=== PATIENT | female | born 1975 ===

== ENCOUNTER 2017-11-16 15:02 | Emergency (ER) | payer MEDICAID, OTHER ==
[2017-11-16 15:31] VITALS: BMI 29.9
[2017-11-16 15:33] VITALS: O2SAT 96
[2017-11-16] MEDS ORDERED: Naproxen 550 mg Tab PO STA (15:49)
--- NOTE | 2017-11-16 16:45 | C.PDOC ---
History Of Present Illness 42 year old female presents to the ED for evaluation of left-sided lower back pain that has been radiating down her left leg for 6 days. Patient denies fever , chills, dysuria/hematuria, urinary/bowel incontinence, urinary retention, extremity numbness/weakness, or recent injury/falls. Time Seen by Provider: 11/16/17 15:36 Chief Complaint (Nursing): Back Pain History Per: Patient History/Exam Limitations: no limitations Onset/Duration Of Symptoms: Days (6) Current Symptoms Are (Timing): Still Present Quality Of Discomfort: "Pain" Severity: Moderate Previous Symptoms: Back Pain Associated Symptoms: denies: Incontinence, New Weakness, New Numbness Exacerbating Factor(s): Movement Additional History Per: Patient Past Medical History Reviewed: Historical Data, Nursing Documentation, Vital Signs Vital Signs: Last Vital Signs Temp 98.8 F 11/16/17 16:46 Pulse 82 11/16/17 16:46 Resp 20 11/16/17 16:46 BP 105/68 11/16/17 16:46 Pulse Ox 96 11/16/17 18:12 - Medical History PMH: Arthritis, Asthma, Hepatitis (Hepatitis C) Surgical History: (x4) - [facility] Procedures BUNIONECT/SFT/OSTEOTOMY (11/29/14) NONEXCIS DEBRID OF WOUND, INFECT, OR BURN (01/06/15) REMOVE INT FIX DEVIC NEC (01/06/15) Family History: States: No Known Family Hx - Social History Hx Alcohol Use: No Hx Substance Use: No Review Of Systems Constitutional: Negative for: Fever, Chills Gastrointestinal: Negative for: Nausea, Vomiting, Abdominal Pain Genitourinary: Negative for: Dysuria, Incontinence, Hematuria Musculoskeletal: Positive for: Back Pain (left-sided, lower ), Leg Pain (left) Skin: Negative for: Rash Physical Exam - Physical Exam Appears: Well, Non-toxic, In Acute Distress (in moderate pain ) Skin: Normal Color, Warm, Dry, No Rash Head: Normacephalic Eye(s): bilateral: Normal Inspection Oral Mucosa: Moist Neck: Supple Cardiovascular: Rhythm Regular Respiratory: Normal Breath Sounds, No Rales, No Rhonchi, No Wheezing Gastrointestinal/Abdominal: Normal Exam, Bowel Sounds, Soft, No Tenderness Back: No CVA Tenderness, No Vertebral Tenderness, Paraspinal Tenderness (left- sided, lumbar ) Extremity: Normal ROM, No Pedal Edema, No Calf Tenderness, No Swelling Neurological/Psych: Oriented x3, Normal Motor, Normal Sensation Gait: Steady ED Course And Treatment O2 Sat by Pulse Oximetry: 96 (on RA) Pulse Ox Interpretation: Normal Progress Note: Patient given PO Naproxen, PO Flexeril and PO Prednisone PO in ED. Reevaluation Time: 16:50 Reassessment Condition: Improved (Patient reassessed, is resting comfortably and states she feels much better. Patient is ambulating normally in the ED. Rxs for Naprosyn, Flexeril and Prednisone given. Patient instructed to follow up with PMD/clinic in 1-2 days, and understands she should return to ED if symptoms worsen.) Disposition Counseled Patient/Family Regarding: Studies Performed, Diagnosis, Need For Followup, Rx Given - Disposition Referrals: [facility] [Outside] Disposition: HOME/ ROUTINE Disposition Time: 16:50 Condition: STABLE Additional Instructions: FOLLOW UP WITH YOUR DOCTOR/CLINIC IN 1-2 DAYS USE MEDICATIONS DIRECTED RETURN TO ER IF SYMPTOMS WORSEN Prescriptions: Cyclobenzaprine [Flexeril] 10 mg PO BID PRN #15 tab PRN Reason: Muscle Spasm Naproxen 375 mg PO BID PRN #20 tablet PRN Reason: pain predniSONE [predniSONE Tab] 40 mg PO DAILY #8 tab Instructions: Low Back Pain (DC), Sciatica (DC) Forms: [employer] (Sinhala) Print Language: PASHTO - POA Present On Arrival: None - Clinical Impression Clinical Impression: Sciatica, Low back pain - Scribe Statement The provider has reviewed the documentation as recorded by the Scribe (Abida Benjamin) Provider Attestation: All medical record entries made by the Scribe were at my direction and personally dictated by me. I have reviewed the chart and agree that the record accurately reflects my personal performance of the history, physical exam, medical decision making, and the department course for this patient. I have also personally directed, reviewed, and agree with the discharge instructions and disposition.
[2017-11-16 16:48] VITALS: BP 105/68; PULSE 82; RESP 20; TEMP 98.8
== END 2017-11-16 17:03 | disposition home or self-care (01) ==
LOC: C.ER 15:02
DX: M54.40 Lumbago with sciatica, unspecified side (principal)